=== PATIENT | male | born 1960 | race Caucasian/White ===

== ENCOUNTER 2021-10-02 17:46 | Emergency (ER) | payer MEDICARE, MEDICAID ==
[2021-10-02] MEDS ORDERED: NS IV 1000 ML 1,000 ML IV STA (18:11)
[2021-10-02 18:19] LABS: BASOPHILS % (AUTO) 1 % (0-10); EOSINOPHILS % (AUTO) 1 % (0-10); HEMATOCRIT 49 % (40-54); HEMOGLOBIN 16.8 g/dL (13.3-17.7); LYMPHOCYTES # (AUTO) 0.8 10^3/uL (1.0-4.0); LYMPHOCYTES % (AUTO) 23 % (12-44); MEAN CORPUSCULAR HEMOGLOBIN 32 pg (25-34); MEAN CORPUSCULAR HGB CONC 34 g/dL (32-36); MEAN CORPUSCULAR VOLUME 93 fL (80-99); MEAN PLATELET VOLUME 8.7 fL (9.0-12.2); MONOCYTES # (AUTO) 0.4 10^3/uL (0.0-1.0); MONOCYTES % (AUTO) 10 % (0-12); NEUTROPHILS # (AUTO) 2.4 10^3/uL (1.8-7.8); NEUTROPHILS % (AUTO) 66 % (42-75); PLATELET COUNT 248 10^3/uL (130-400); WHITE BLOOD COUNT 3.6 10^3/uL (4.3-11.0)
--- NOTE | 2021-10-02 18:20 | ED GI ---
General Chief Complaint: Abdominal/GI Problems Stated Complaint: NAUSEA Source of Information: Patient History of Present Illness Date Seen by Provider: Oct 02, 2021 Time Seen by Provider: 17:48 Initial Comments 61-year-old male presenting with complaints of over 5 months of abdominal pain and nausea. He states the pain is worse in the last few days and he can not sleep or rest due to the pain being worse. He denies any actual vomiting, diarrhea, change in bowels. He has no pain or burning with urination and no fever or chills. He denies any prior abdominal surgeries. He has been seen at multiple emergency departments and [place] including [facility]. He reports that he has also followed up with his primary care doctor Dr. Rodrigues in [place]. He has been told that he had blocked arteries to his stomach and then on his most recent CT scan he said that they told him he had a mass on his colon. He feels like he needs to be admitted to the hospital because he has increased abdominal pain and nausea with movement. Yesterday he went to [place] and was seen again in the emergency department. He states that he was having pain overnight and feeling like something was pushing on his stomach trying to make him get nauseated and throw up. They did not admit him and so today he was told by someone to come to [place] for evaluation and if he needed admitted that we would make sure that happened. I advised him that he did not have a hospital here in [place] and it was only on the emergency department. He stated that he knew that and that if he needed to be admitted he would be sent to [place]. However he did not directly go to [place] to be seen and seek to be admitted there. I advised him that we would have to start all over on his testing to determine if there was anything that warranted admission. Since we did not have any of his other records we will try to request records from [place] and other emergency departments in [place] that he has already been seen at. Timing/Duration: Other (over 5 months) Severity/Quality: Moderate, Full (feels like a mass or pressure is pushing on his stomach and making him feel like he is going to throw up) Location: Generalized Abdomen Radiation: No Radiation Activities at Onset: None Modifying Factors: Worsens With Eating, Worsens With Movement Associated Symptoms: No Back Pain, No Chest Pain, No Diaphoresis, No Fever/Chills, No Fatigue, No Headache, No Heartburn; Nausea/Vomiting (nausea with movement but no emesis); No Rash, No Shortness of Air, No Syncope, No Weakness Allergies and Home Medications Allergies Coded Allergies: codeine (Verified Allergy, Unknown, 10/02/21) Patient Home Medication List Home Medication List Reviewed: Yes Clonazepam (Clonazepam) 0.25 Mg Tab.rapdis, (Reported) Entered as Reported by: MAGY JACOBO on 10/03/21110 Last Action: New Order Ondansetron HCl (Ondansetron HCl) 4 Mg Tablet, (Reported) Entered as Reported by: MAGY JACOBO on 10/03/21110 Last Action: New Order Oxycodone HCl/Acetaminophen (Oxycodone-Acetaminophen 5-325) 5 Mg-325 Mg Tablet, (Reported) Entered as Reported by: MAGY JACOBO on 10/03/21110 Last Action: New Order Promethazine HCl (Promethazine Tablet) 25 Mg Tablet, (Reported) Entered as Reported by: MAGY JACOBO on 10/03/21110 Last Action: New Order Tizanidine HCl (Tizanidine HCl) 2 Mg Tablet, (Reported) Entered as Reported by: MAGY JACOBO on 10/03/21110 Last Action: New Order Review of Systems Review of Systems Constitutional: see HPI EENTM: No Symptoms Reported Respiratory: No Symptoms Reported Cardiovascular: No Symptoms Reported Gastrointestinal: See HPI Genitourinary: Denies Burning, Denies Pain Musculoskeletal: no symptoms reported Skin: No rash Psychiatric/Neurological: No Symptoms Reported Endocrine: No Symptoms Reported Hematologic/Lymphatic: No Symptoms Reported Past Jhxupjv-Yojwoe-Ebfrug Hx Past Medical History Surgery/Hospitalization HX: Coronary artery disease with bypass, cholecystectomy Surgeries: Yes Gallbladder, Open Heart Surgery Physical Exam Vital Signs Vital Signs - First Documented 10/02/21 17:50 Temp 36.9 Pulse 100 Resp 28 B/P (MAP) 162/87 (112) Pulse Ox 93 O2 Delivery Room Air Capillary Refill : Height/Weight/BMI Height: '" Weight: lbs. oz. kg; BMI Method: General Appearance: no apparent distress, thin HEENT: PERRL/EOMI, pharynx normal Neck: non-tender, full range of motion, supple, normal inspection Respiratory: chest non-tender, lungs clear, normal breath sounds, no respiratory distress, no accessory muscle use Cardiovascular: normal peripheral pulses, regular rate, rhythm Gastrointestinal: normal bowel sounds, soft, no pulsatile mass; No distended, No guarding, No rebound; tenderness (diffuse tenderness to palpation) Rectal: deferred Extremities: normal range of motion, non-tender, normal capillary refill, other (born with only partial LUE, RLE, LLE) Neurologic/Psychiatric: alert, oriented x 3 Skin: warm/dry Focused Exam Lactate Level 10/02/21 22:33: Lactic Acid Level 1.17 Lactic Acid Level Laboratory Tests Test 10/02/21 22:33 Lactic Acid Level 1.17 MMOL/L (0.50-2.00) Progress/Results/Core Measures Results/Orders Lab Results Laboratory Tests Test 10/02/21 18:00 10/02/21 19:30 10/02/21 22:33 10/02/21 22:35 Range/Units White Blood Count 3.6 L 4.3-11.0 10^3/uL Red Blood Count 5.28 4.30-5.52 10^6/uL Hemoglobin 16.8 13.3-17.7 g/dL Hematocrit 49 40-54 % Mean Corpuscular Volume 93 80-99 fL Mean Corpuscular Hemoglobin 32 25-34 pg Mean Corpuscular Hemoglobin Concent 34 32-36 g/dL Red Cell Distribution Width 13.7 10.0-14.5 % Platelet Count 248 130-400 10^3/uL Mean Platelet Volume 8.7 L 9.0-12.2 fL Immature Granulocyte % (Auto) 1 % Neutrophils (%) (Auto) 66 42-75 % Lymphocytes (%) (Auto) 23 12-44 % Monocytes (%) (Auto) 10 0-12 % Eosinophils (%) (Auto) 1 0-10 % Basophils (%) (Auto) 1 0-10 % Neutrophils # (Auto) 2.4 1.8-7.8 10^3/uL Lymphocytes # (Auto) 0.8 L 1.0-4.0 10^3/uL Monocytes # (Auto) 0.4 0.0-1.0 10^3/uL Eosinophils # (Auto) 0.0 0.0-0.3 10^3/uL Basophils # (Auto) 0.0 0.0-0.1 10^3/uL Immature Granulocyte # (Auto) 0.0 0.0-0.1 10^3/uL Prothrombin Time 12.2 12.2-14.7 SEC INR Comment 0.9 0.8-1.4 Activated Partial Thromboplast Time 30 24-35 SEC Sodium Level 140 135-145 MMOL/L Potassium Level 4.0 3.6-5.0 MMOL/L Chloride Level 102 98-107 MMOL/L Carbon Dioxide Level 25 21-32 MMOL/L Anion Gap 13 5-14 MMOL/L Blood Urea Nitrogen 8 7-18 MG/DL Creatinine 0.72 0.60-1.30 MG/DL Estimat Glomerular Filtration Rate 104 BUN/Creatinine Ratio 11 Glucose Level 84 70-105 MG/DL Calcium Level 8.4 L 8.5-10.1 MG/DL Corrected Calcium 8.2 L 8.5-10.1 MG/DL Total Bilirubin 0.3 0.1-1.0 MG/DL Aspartate Amino Transf (AST/SGOT) 36 H 5-34 U/L Alanine Aminotransferase (ALT/SGPT) 27 0-55 U/L Alkaline Phosphatase 82 40-136 U/L Total Protein 7.2 6.4-8.2 GM/DL Albumin 4.3 3.2-4.5 GM/DL Lipase 55 8-78 U/L Urine Color YELLOW Urine Clarity CLEAR Urine pH 6.5 5-9 Urine Specific [place] 1.010 L 1.016-1.022 Urine Protein NEGATIVE NEGATIVE Urine Glucose (UA) NEGATIVE NEGATIVE Urine Ketones NEGATIVE NEGATIVE Urine Nitrite NEGATIVE NEGATIVE Urine Bilirubin NEGATIVE NEGATIVE Urine Urobilinogen 0.2 < = 1.0 MG/DL Urine Leukocyte Esterase NEGATIVE NEGATIVE Urine RBC (Auto) NEGATIVE NEGATIVE Urine RBC NONE /HPF Urine WBC 0-2 /HPF Urine Squamous Epithelial Cells RARE /HPF Urine Crystals NONE /LPF Urine Bacteria NEGATIVE /HPF Urine Casts NONE /LPF Urine Mucus SMALL H /LPF Urine Culture Indicated NO Lactic Acid Level 1.17 0.50-2.00 MMOL/L SARS-CoV-2 RNA (RT-PCR) Detected H Not Detecte My Orders Orders - DEVEN VILLAREAL MD Comprehensive Metabolic Panel (10/02/21 18:11) Lipase (10/02/21 18:11) Ua Culture If Indicated (10/02/21 18:11) Ed Iv/Invasive Line Start (10/02/21 18:11) Cbc With Automated Diff (10/02/21 18:11) Ct Angio Abdomen/Pelv W (10/02/21 18:11) Ns Iv 1000 Ml (Sodium Chloride 0.9%) (10/02/21 18:11) Iohexol Injection (Omnipaque 350 Mg/Ml 1 (10/02/21 18:45) Received Contrast (Hold Metformin- Contr (10/02/21 18:45) Sodium Chloride Flush (Catheter Flush Sy (10/02/21 18:45) Ns (Ivpb) (Sodium Chloride 0.9% Ivpb Bag (10/02/21 18:45) Lactic Acid Analyzer (10/02/21 22:11) Covid 19 Inhouse Test (10/02/21 22:11) Fentanyl Inj (Sublimaze Injection) (10/02/21 22:11) Heparin Drip 52073 Unit/500ml (Heparin (10/02/21 22:15) Heparin (Bolus Per Protocol) (Heparin (B (10/02/21 22:15) Protime With Inr (10/02/21 22:11) Partial Thromboplastin Time (10/02/21 22:11) Fentanyl Inj (Sublimaze Injection) (10/02/21 22:48) Heparin (Bolus Per Protocol) (Heparin (B (10/02/21 22:49) Heparin Drip 35164 Unit/500ml (Heparin (10/02/21 22:49) Medications Given in ED Current Medications Medications Dose Ordered Sig/Ewa Route Start Time Stop Time Status Last Admin Dose Admin Heparin Sodium (Porcine) HEPARIN FULL PROTOC... ONCE ONCE IV 10/02/21 22:15 10/02/21 22:16 DC 10/02/21 23:04 3,300 UNIT Heparin Sodium/ Dextrose 500 ml @ 0 mls/hr Q0M ONCE IV 10/02/21 22:15 10/02/21 22:16 DC 10/02/21 23:06 14.7 MLS/HR Iohexol 100 ml ONCE ONCE IV 10/02/21 18:45 10/02/21 18:46 DC 10/02/21 19:21 100 ML Sodium Chloride 10 ml NEEDED PRN IV 10/02/21 18:45 10/02/21 19:22 10 ML Sodium Chloride 100 ml ONCE ONCE IV 10/02/21 18:45 10/02/21 18:46 DC 10/02/21 19:22 100 ML Vital Signs/I&O 10/02/21 17:50 Temp 36.9 Pulse 100 Resp 28 B/P (MAP) 162/87 (112) Pulse Ox 93 O2 Delivery Room Air 10/03/21 00:00 Intake Total 1000 ml Balance 1000 ml Progress Progress Note #1: Progress Note Advised the patient that I would have to start over with this testing as he had come to her new emergency department. Also I did not have a hospital here to admit him. He would have to be completely reevaluated and if there was something that warranted admission and then that can be entertained otherwise he may just be getting additional testing like he has had multiple other emergency departments in [place]. His answer to that was him saying, "you need to admit me and someone needs to monitor me for why I am having this pain and feeling like I am going to throw up." Progress Note #2: Time: 19:21 Progress Note CBC and chemistry are stable without acute significant abnormality to account for his pain and nausea. Awaiting CT scan and urinalysis. Still no records sent from [place] or [place]. Progress Note #3: Time: 21:44 Progress Note Urinalysis did not show signs of infection or any blood. CT scan came back while I was performing a procedure on another patient. Reviewed test results with the patient and clarified about what vascular surgeon he was supposed to follow-up with. Patient reported that he was supposed to see through [facility] but has not been able to get in with him yet. He has an appointment next week but with the pain being worse he was worried he was going to or have an artery completely close off before he could see the surgeon. Since he has already had some testing at and plans to follow up with the doctor there he requests to check with them first about possible transfer. 2210 I spoke with ARIEL Boothe at the [facility] transfer center. He took the patient information and stated he would check with vascular surgery about the patient. In the meantime I ordered coags as well as a COVID swab and lactic acid on the patient. This would be to help look at his clotting factors as well as make sure he was not having any signs of ischemic bowel based off lab. The CT angiogram did not demonstrate any signs of ischemic bowel. He also was given fentanyl for pain 50 mcg IV x1. He had heparin ordered with a bolus and full dose to help with thinning his blood in case there was ischemia and since he has narrowing and stenosis of the arteries. Progress Note #4: Time: 23:28 Progress Note I called back to the [facility] transfer center and spoke with ARIEL Boothe. He stated that he had medical emergencies come up after I spoke with him so he was just now getting a hold of vascular surgery to see what they recommended or wanted to with the patient. In the meantime his Lactic acid was not elevated to indicate ischemic bowel, Coags were normal. Covid test did come back positive but he has no symptoms of Covid. Progress Note #5: Progress Note 0001 I spoke with ARIEL Boothe, and Dr. Bower, Vascular surgeon fondant puff maker, for [facility] and Dr. Bower felt the pain he was describing was not necessarily from a vascular standpoint as the cause. She recommended that if she was complaining of worsening pain and more severe symptoms and needed to be admitted to check with medicine service and then consult GI and vascular. ARIEL Boothe spoke with the medicine service and then called back with admission information at 0022. He stated Dr. Mosley was the accepting provider and they will call back when a bed assignment is available Diagnostic Imaging Diagonstic Imaging: CT Plain Films/CT/US/NM/MRI: abdomen, pelvis Comments [facility] [place] NAME: YOLY MATTSON Meka [facility] REC#: [id number] PT STATUS: REG ER : 1960 PHYSICIAN: DEVEN VILLAREAL MD ADMIT DATE: 10/02/21/ER FS Signed Date of Exam:10/02/21 CT ANGIO ABDOMEN/PELV W PROCEDURE: CT Angio abdomen/pelvis with. TECHNIQUE: Multiple contiguous axial images were obtained through the abdomen and pelvis after the uneventful bolus administration of intravenous contrast. Sagittal and coronal MIP reconstructions with then performed. All CT scans use one or more of the following dose optimizing techniques: automated exposure control, MA and/or KvP adjustment based on patient size and exam type or iterative reconstruction. INDICATION: Abdominal pain, mass. COMPARISON: None available. FINDINGS: Severe emphysematous changes within the lung bases partially visualized. Tiny hiatal hernia. The liver is unremarkable. The spleen is unremarkable. The pancreas is unremarkable. The kidneys are grossly unremarkable. The appendix is unremarkable. Mural thickening of the urinary bladder. The prostate gland is enlarged. Mild colonic diverticulosis without CT evidence of diverticulitis. No bowel obstruction or pneumatosis. No significant adenopathy, free air or free fluid within the abdomen or pelvis. High-grade stenosis involving the origin of the celiac artery. Moderate stenosis involving the origin of the superior mesenteric artery. Single bilateral renal arteries are present and patent. Ectasia of the infrarenal abdominal aorta is present measuring up to just under 2.5 cm. Moderate stenosis within the right common iliac artery with mild stenosis on the left. Severe stenosis within the left internal iliac artery. The bilateral external iliac arteries are patent. No significant adenopathy, free air or free fluid within the abdomen or pelvis. Scattered osseous degenerative changes without acute osseous abnormality. IMPRESSION: 1. 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 2. Moderate stenosis involving the origin of the superior mesenteric artery. 3. Moderate left and mild right stenosis involving the bilateral common iliac arteries with severe stenosis involving the left internal iliac artery. 4. Severe emphysematous changes within the lungs. 5. Tiny hiatal hernia. 6. Mural thickening of the urinary bladder, related to poor distention versus cystitis. Dictated by: Dictated on workstation # [id number] Dict: 10/02/211934 Trans: 10/02/212242 [facility] [id number] Interpreted by: DARIUSZ SAPP MD Electronically signed by: DARIUSZ SAPP MD 10/02/212242 Reviewed: Reviewed by Me Departure Impression Primary Impression: Celiac artery stenosis Additional Impressions: Chronic generalized abdominal pain Nausea alone Superior mesenteric artery stenosis Asymptomatic COVID-19 virus infection Disposition: SHT-TRM HOSP Condition: Stable Transfer Transfer Reason: Exceeds level of care (Established with care at [facility] and needs Vascular and GI specialists) Time Spoke to Accepting Phy: 00:[address] Mosley was the accepting physician through [facility] transfer center and patient will be evaluated for his worsening abdominal pain. They will likely consult vascular surgery and GI to see the patient for his increasing abdominal pain. Transfer Facility: [facility] Method of Transfer: EMS DEVEN VILLAREAL MD Oct 02, 2021 18:20
[2021-10-02 18:39] LABS: ALBUMIN 4.3 GM/DL (3.2-4.5); BILIRUBIN,TOTAL 0.3 MG/DL (0.1-1.0); CALCIUM 8.4 MG/DL (8.5-10.1); CREATININE SERUM 0.72 MG/DL (0.60-1.30); TOTAL PROTEIN 7.2 GM/DL (6.4-8.2)
[2021-10-02] MEDS ORDERED: HOLD METFORMIN - RECEIVED CONTRAST 20 ML VIAL IV SCH (18:45)
[2021-10-02] MEDS ORDERED: NS 100 ML (IVPB) BAG IV ONE (18:45)
[2021-10-02] MEDS ORDERED: IOHEXOL 350 MG/ML 100 ML (OMNIPAQUE 350) VIAL IV ONE (18:45)
[2021-10-02] MEDS ORDERED: CATHETER FLUSH 10 ML SYR IV PRN (18:45)
[2021-10-02 19:41] LABS: BILIRUBIN,URINE NEGATIVE (NEGATIVE); CLARITY,URINE CLEAR; COLOR,URINE YELLOW; GLUCOSE, URINE (UA) NEGATIVE (NEGATIVE); KETONES,URINE NEGATIVE (NEGATIVE); LEUKOCYTE ESTERASE ,URINE NEGATIVE (NEGATIVE); NITRITE,URINE NEGATIVE (NEGATIVE); PH,URINE 6.5 (5-9); PROTEIN,URINE NEGATIVE (NEGATIVE)
[2021-10-02 19:45] LABS: BACTERIA,URINE NEGATIVE /HPF; SQUAMOUS EPITHELIAL CELL,UR RARE /HPF; WBC,URINE 0-2 /HPF
--- NOTE | 2021-10-02 19:52 | Diagnostic Imaging Report ---
PROCEDURE: CT Angio abdomen/pelvis with. TECHNIQUE: Multiple contiguous axial images were obtained through the abdomen and pelvis after the uneventful bolus administration of intravenous contrast. Sagittal and coronal MIP reconstructions with then performed. All CT scans use one or more of the following dose optimizing techniques: automated exposure control, MA and/or KvP adjustment based on patient size and exam type or iterative reconstruction. INDICATION: Abdominal pain, mass. COMPARISON: None available. FINDINGS: Severe emphysematous changes within the lung bases partially visualized. Tiny hiatal hernia. The liver is unremarkable. The spleen is unremarkable. The pancreas is unremarkable. The kidneys are grossly unremarkable. The appendix is unremarkable. Mural thickening of the urinary bladder. The prostate gland is enlarged. Mild colonic diverticulosis without CT evidence of diverticulitis. No bowel obstruction or pneumatosis. No significant adenopathy, free air or free fluid within the abdomen or pelvis. High-grade stenosis involving the origin of the celiac artery. Moderate stenosis involving the origin of the superior mesenteric artery. Single bilateral renal arteries are present and patent. Ectasia of the infrarenal abdominal aorta is present measuring up to just under 2.5 cm. Moderate stenosis within the right common iliac artery with mild stenosis on the left. Severe stenosis within the left internal iliac artery. The bilateral external iliac arteries are patent. No significant adenopathy, free air or free fluid within the abdomen or pelvis. Scattered osseous degenerative changes without acute osseous abnormality. IMPRESSION: 1. 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 2. Moderate stenosis involving the origin of the superior mesenteric artery. 3. Moderate left and mild right stenosis involving the bilateral common iliac arteries with severe stenosis involving the left internal iliac artery. 4. Severe emphysematous changes within the lungs. 5. Tiny hiatal hernia. 6. Mural thickening of the urinary bladder, related to poor distention versus cystitis. Dictated by: Dictated on workstation # [id number]
[2021-10-02] MEDS ORDERED: fentaNYL INJ 100 MCG/2 ML AMP IVP STA (22:11)
[2021-10-02] MEDS ORDERED: HEParin 1000 UNIT/ML (10ML VIAL) FOR BOLUS IV ONE (22:15)
[2021-10-02] MEDS ORDERED: HEParin DRIP 25000 UNIT/500ML 500 ML IV ONE ×2 (22:15→22:49)
[2021-10-02 22:29] LABS: INR 0.9 (0.8-1.4); PROTHROMBIN TIME PATIENT 12.2 SEC (12.2-14.7)
[2021-10-02] MEDS ORDERED: fentaNYL INJ 100 MCG/2 ML AMP ONE (22:48)
[2021-10-02] MEDS ORDERED: HEParin 1000 UNIT/ML (10ML VIAL) FOR BOLUS ONE (22:49)
[2021-10-03] MEDS ORDERED: CLON0.252 (01:11)
[2021-10-03] MEDS ORDERED: OXYC1TAB11 (01:11)
[2021-10-03] MEDS ORDERED: TIZA-169 (01:11)
[2021-10-03] MEDS ORDERED: PROM25TA14 (01:11)
[2021-10-03] MEDS ORDERED: ONDA-105 (01:11)
[2021-10-03 01:50] VITALS: BP 111/65
== END 2021-10-03 01:50 | disposition short-term general hospital (02) ==
LOC: ER FS 17:47
DX: U07.1 COVID-19 (principal); I77.4 Celiac artery compression syndrome; K55.1 Chronic vascular disorders of intestine; Z90.49 Acquired absence of other specified parts of digestive tract; Z28.310 Unvaccinated for COVID-19
CPT/HCPCS: 36415; 74174; 80053; 81000; 83605; 83690; 85025; 85610; 85730; 87636; Q9967